=== PATIENT | female | born 1950 | race Caucasian/White ===

== ENCOUNTER 2017-09-03 09:39 | Emergency (ER) | payer BC ==
[2017-09-03 10:59] VITALS: BP 133/74
[2017-09-03] MEDS ORDERED: Phenazopyridine TAB* 100 MG PO ONE (11:15)
[2017-09-03] MEDS ORDERED: Cephalexin CAP* 500 MG PO ONE (11:15)
--- NOTE | 2017-09-03 11:30 | UC ---
Complaint Female HPI - HPI Summary HPI Summary: 67 yo female with one day hx of dysuria/urgency frequency chills mild LBP no fever no abd pain - History Of Current Complaint Chief Complaint: UCGU Stated Complaint: URINARY COMPLAINT Time Seen by Provider: 09/03/17 10:47 Hx Obtained From: Patient Onset/Duration: Gradual Onset Timing: Constant Severity Initially: Mild Severity Currently: Mild Pain Intensity: 2 - worse with urination Pain Scale Used: 0-10 Numeric Character: Burning Aggravating Factor(s): Nothing Associated Signs And Symptoms: Positive: Negative - Allergies/Home Medications Allergies/Adverse Reactions: Allergies Allergy/AdvReac Type Severity Reaction Status Date / Time ketoprofen Allergy Swelling Verified 09/03/17 10:43 Of Face,Lips,& Throat lisinopril Allergy Coughing Verified 09/03/17 10:43 losartan Allergy See Comment Verified 09/03/17 10:43 naproxen Allergy Edema Verified 09/03/17 10:43 Sulfa (Sulfonamide Allergy Rash Verified 09/03/17 10:45 Antibiotics) PMH/Surg Hx/FS Hx/Imm Hx Previously Healthy: Yes Cardiovascular History: Hypertension Respiratory History: Asthma - Surgical History Surgical History: Yes Surgery Procedure, Year, and Place: Tonsillectomy, 1954, [place]. Tubal Ligation, 1975, [facility] [place]. Right HERLINDA, 2013, [place] with metal; right shoulder 03/2017. APPENDECTOMY- 1975- [facility] [place]. BUNIONECTOMY- 2009- [facility] [place]- DR. CRYSTAL - Social History Alcohol Use: Weekly Alcohol Amount: 1 Substance Use Type: None Smoking Status (MU): Never Smoked Tobacco Have You Smoked in the Last Year: No - Immunization History Most Recent Influenza Vaccination: NEVER Most Recent Tetanus Shot: 3-4 YEARS AGO Most Recent Pneumonia Vaccination: 2014 Review of Systems Constitutional: Negative Skin: Negative Eyes: Negative ENT: Negative Respiratory: Negative Cardiovascular: Negative Gastrointestinal: Negative Genitourinary: Dysuria, Frequency, Urgency Motor: Negative Neurovascular: Negative Musculoskeletal: Negative Neurological: Negative Psychological: Negative Is Patient Immunocompromised?: No All Other Systems Reviewed And Are Negative: Yes Physical Exam Triage Information Reviewed: Yes Appearance: Well-Appearing, No Pain Distress, Well-Nourished Vital Signs: Initial Vital Signs Temp 98.4 F 09/03/17 10:50 Pulse 81 09/03/17 10:50 Resp 16 09/03/17 10:50 BP 133/74 09/03/17 10:50 Pulse Ox 100 09/03/17 10:50 Vital Signs Reviewed: Yes Eyes: Positive: Conjunctiva Clear ENT: Negative: Pharyngeal erythema, Nasal congestion, Nasal drainage, Trismus, Muffled voice, Hoarse voice Neck: Positive: Supple, Nontender Respiratory: Positive: Lungs clear, Normal breath sounds, No respiratory distress, No accessory muscle use Cardiovascular: Positive: RRR, No Murmur Abdomen Description: Positive: Nontender. Negative: CVA Tenderness (R), CVA Tenderness (L) Bowel Sounds: Positive: Present Musculoskeletal: Positive: ROM Intact, No Edema Psychological Exam: Normal Skin Exam: Normal Complaint Female Dx - Course Course Of Treatment: UA +++ leuks, ++ RBCs - Differential Dx/Diagnosis Provider Diagnoses: acute cystitis Discharge - Discharge Plan Condition: Stable Disposition: HOME Prescriptions: Cephalexin CAP* [Keflex CAP*] 500 mg PO BID #10 cap Phenazopyridine TAB* [Pyridium TAB*] 100 mg PO TID #6 tab Patient Education Materials: Dysuria (ED) Referrals: Viv Wilde MD [Primary Care Provider] - 3 Days (if not better)
== END 2017-09-03 11:30 | disposition home or self-care (01) ==
LOC: UCCORT 09:39
DX: N30.00 Acute cystitis without hematuria (principal); Z88.1 Allergy status to other antibiotic agents; Z88.8 Allergy status to other drugs, medicaments and biological substances; I10 Essential (primary) hypertension
CPT/HCPCS: 81003; 87077; 87086; 87186; 99212; A9270-GY; G0463

== ENCOUNTER 2017-09-17 09:06 | Emergency (ER) | payer BC ==
[2017-09-17 09:42] VITALS: BP 137/79
--- NOTE | 2017-09-17 10:32 | ED ---
GI/ HPI - HPI Summary HPI Summary: 67 yr old recently treated for UTI, and has left flank pain, dysuria, frequency. Denies fever and chills. Symptoms have come back over the weekend. No other complaints. - History of Current Complaint Chief Complaint: UCGU Time Seen by Provider: 09/17/17 10:10 Stated Complaint: URINARY Pain Intensity: 3 - Additional Pertinent History Primary Care Physician: MARILY - Allergy/Home Medications Allergies/Adverse Reactions: Allergies Allergy/AdvReac Type Severity Reaction Status Date / Time ketoprofen Allergy Swelling Verified 09/17/17 09:33 Of Face,Lips,& Throat lisinopril Allergy Coughing Verified 09/17/17 09:33 losartan Allergy See Comment Verified 09/17/17 09:33 naproxen Allergy Edema Verified 09/17/17 09:33 Sulfa (Sulfonamide Allergy Rash Verified 09/17/17 09:33 Antibiotics) PMH/Surg Hx/FS Hx/Imm Hx Previously Healthy: Yes Cardiovascular History: Reports: Hx Hypertension - ON MEDS FOR Respiratory History: Reports: Hx Asthma - PT IS ON MEDS FOR Musculoskeletal History: Reports: Hx Osteoporosis - Cancer History Hx Chemotherapy: No Hx Radiation Therapy: No - Surgical History Surgery Procedure, Year, and Place: Tonsillectomy, 1954, [place]. Tubal Ligation, 1975, [facility] [place]. Right HERLINDA, 2013, [place] [facility] with metal; right shoulder 03/2017. APPENDECTOMY- 1975- [facility] [place]. BUNIONECTOMY- 2009- [facility] [place]- DR. BONILLA Gonzales Anesthesia Reactions: No Infectious Disease History: No Infectious Disease History: Denies: Traveled Outside the [place] in Last 30 Days - Family History Known Family History: Positive: None - Social History Occupation: Retired Alcohol Use: Weekly Alcohol Amount: 1 Substance Use Type: Reports: None Smoking Status (MU): Never Smoked Tobacco Have You Smoked in the Last Year: No Review of Systems Constitutional: Negative Positive: dysuria, flank pain, urgency All Other Systems Reviewed And Are Negative: Yes Physical Exam Triage Information Reviewed: Yes Vital Signs On Initial Exam: Initial Vitals Temp Pulse Resp BP Pulse Ox 98.8 F 78 18 137/79 100 09/17/17 09:33 09/17/17 09:33 09/17/17 09:33 09/17/17 09:33 09/17/17 09:33 Vital Signs Reviewed: Yes Appearance: Positive: Well-Appearing, No Pain Distress Skin: Positive: Warm, Skin Color Reflects Adequate Perfusion Head/Face: Positive: Normal Head/Face Inspection Eyes: Positive: EOMI ENT: Positive: Normal ENT inspection Neck: Positive: Nontender Respiratory/Lung Sounds: Positive: Clear to Auscultation, Breath Sounds Present Cardiovascular: Positive: RRR. Negative: Murmur Abdomen Description: Positive: Nontender, CVA Tenderness (L) Musculoskeletal: Positive: Strength/ROM Intact Neurological: Positive: Sensory/Motor Intact, Alert, Oriented to Person Place, Time, CN Intact II-III Psychiatric: Positive: Normal Diagnostics - Vital Signs Vital Signs Temp Pulse Resp BP Pulse Ox 09/17/17 09:33 98.8 F 78 18 137/79 100 - Laboratory Lab Results: Lab Results 09/17/17 Range/Units 09:54 POC Urine Color Yellow POC Urine Clarity Cloudy POC Urine pH 6.5 (5-9) POC Ur Specif Dixon 1.015 (1.010-1.030) POC Urine Protein 2+ A (Negative) POC Ur Glucose (UA) Negative (Negative) POC Urine Ketones Trace A (Negative) POC Urine Blood 3+ A (Negative) POC Urine Nitrite Negative (Negative) POC Urine Bilirubin Negative (Negative) POC Urine Urobilinogen 0.2 (Negative) POC U Leukocyte Esteras 3+ A (Negative) Lab Statement: Any lab studies that have been ordered have been reviewed, and results considered in the medical decision making process. GIGU Course/Dx - Course Course Of Treatment: 67 yr old with flank pain, and urinary symptoms. Urine dip positive for infection. Rx with Augmentin 10 days. - Diagnoses Provider Diagnoses: Pyelonephritis Discharge - Discharge Plan Condition: Good Disposition: HOME Prescriptions: Amoxicillin/Clavulanate TAB* [Augmentin TAB 875*] 875 mg PO BID #20 tab Phenazopyridine TAB* [Pyridium 100 mg TAB*] 100 mg PO TID #6 tab Patient Education Materials: Kidney Infection (ED) Referrals: Viv Wilde MD [Primary Care Provider] - 2 Days
== END 2017-09-17 10:29 | disposition home or self-care (01) ==
LOC: UCCORT 09:06
DX: N12 Tubulo-interstitial nephritis, not specified as acute or chronic (principal); B96.20 Unspecified Escherichia coli [E. coli] as the cause of diseases classified elsewhere; Z88.8 Allergy status to other drugs, medicaments and biological substances; Z88.2 Allergy status to sulfonamides; I10 Essential (primary) hypertension; J45.909 Unspecified asthma, uncomplicated
CPT/HCPCS: 81003; 87077; 87086; 87186; 99212; G0463

== ENCOUNTER 2018-11-12 06:01 | Inpatient (IN) | payer MEDICARE, BC ==
--- NOTE | 2018-10-29 19:00 | HP ---
CC: Dr. Viv Wilde; Dr. Abdias Toussaint * ADMISSION HISTORY AND PHYSICAL: DATE OF ADMISSION: 11/12/18 DATE OF OFFICE VISIT: 10/28/18 ATTENDING SURGEON: Dr. Agus Medrano.* (DICTATED BY GEMINI BOBO) CHIEF COMPLAINT: Abdominal ventral hernia. HISTORY OF PRESENT ILLNESS: This is a 68-year-old female, who underwent laparoscopic-assisted right colectomy in 2016 for a benign polyp. Some time beginning in the 6- to 9-month period following surgery, she was bending over and felt some pain in her mid abdomen. Subsequently, with significant intentional weight loss (80 pounds), she noted the development of a mid abdominal bulge. This has increased in size since it was first noted and she often has discomfort particularly after exercise. She has not had any particular changes in GI function and specifically denies nausea, vomiting, or constipation. She does note some increased pain with sneezing or coughing. She has not had any symptoms to suggest incarceration or strangulation. She was seen in the office by Dr. Medrano on 09/27/18, at which time examination confirmed the presence of a mid abdominal ventral hernia measuring approximately 16 x 6 cm. It was nontender and reducible. She did undergo an attempted colonoscopy recently with Dr. Toussaint, but this was unable to be completed because of the tortuous nature of her left colon and the fact that the colon appeared to be within the hernia sac. She did have one tubular adenoma removed at that time. She underwent subsequent virtual CT colonoscopy on 10/10/18, which did not show any other lesions of significance. She was noted to have gallstones and diverticulosis without diverticulitis. She understands the indications for surgery, the risks, benefits, and alternatives. She would like to proceed as scheduled with open repair of ventral hernia with component separation and mesh. She also understands the expected potential hospital stay. PAST MEDICAL HISTORY: Hypertension, asthma, palpitations. PAST SURGICAL HISTORY: Previous surgeries include laparoscopic-assisted right colectomy in 2016. Previously, she has had tubal ligation with incidental appendectomy, left foot surgery complicated by left calf DVT for which she was treated and without any history of recurrence. In addition, she has undergone right total hip arthroplasty in 2013, right shoulder replacement in 2017, right knee replacement in 2018, tonsillectomy remotely. No other postsurgical or anesthesia complications noted. CURRENT MEDICATIONS: 1. Aspirin 81 mg once daily, which she will hold as of 7 days preoperatively. 2. Diltiazem extended release 120 mg once daily. 3. Hydrochlorothiazide 12.5 mg once daily. 4. Pulmicort MDI 90 mcg per activation 1 puff once daily. 5. ProAir HFA 2 puffs q.4 hours p.r.n. (the patient virtually never uses). 6. Multivitamin daily. 7. Calcium supplement daily. 8. Eye moisturizing drops daily. DRUG ALLERGIES: SULFA (rash), ALEVE (ankle swelling), KETOPROFEN (mouth numbness and diarrhea) (she tolerates other NSAIDs), LISINOPRIL (cough), FOSAMAX (joint pain). FAMILY HISTORY: Not obtained. SOCIAL HISTORY: The patient is . She has 1 son and grandson currently living with her. She is retired. She denies use of tobacco. She drinks approximately 1 alcoholic drink per week and denies any other recreational drug use. REVIEW OF SYSTEMS: General: No recent constitutional symptoms or acute illnesses. Weight has been stable of late after intentional weight loss as noted above. HEENT: No problems reported. Cardiovascular: Her palpitations are well controlled. She is treated for hypertension. No history of any other cardiovascular disease. Respiratory: No recent exacerbations of her asthma, which is well controlled. No chronic cough or shortness of breath. GI: No additional symptoms other than per the HPI. : No problems reported. 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 She no longer her Pap smears done and no problems reported. Endocrine: No diabetes or thyroid dysfunction. PHYSICAL EXAMINATION GENERAL: Well-nourished, well-developed female, in no acute distress. VITAL SIGNS: Height 5 feet 3 inches, weight 125 pounds. Other vital signs per nursing. HEENT: Pupils are equal, round, and reactive. EOMs intact. No conjunctival pallor. Oropharynx: Teeth in good repair. No intraoral lesions noted. NECK: No lymphadenopathy, thyromegaly, or masses. LUNGS: Clear to auscultation. No rales or wheezes. HEART: Regular rate and rhythm. No murmur noted. ABDOMEN: Soft, nontender to palpation. There is a visible and palpable mid abdominal bulge, which is nontender and reducible, consistent with her known ventral hernia. GENITALIA: Not done. RECTAL: Not done. BACK: No spinous process or CVA tenderness. EXTREMITIES: No edema. NEUROLOGICAL: Grossly intact. SKIN: Warm and dry. No suspicious rashes or lesions. IMPRESSION: Abdominal ventral hernia. PLAN: Open repair of abdominal ventral hernia with component separation and mesh. GEMINI BOBO [id number]/[facility] #: [id number] [facility] CENTERAdam
[~2018-11-12 06:01] MED LIST: Buffered Lidocaine 1% SYRIN* 1 ML/SYRINGE INTRADERM ONE; Lactated Ringers 1000 ML Bag* 1,000 ML IV SCH; Sodium Citrate/Citric Acid* 15 ML UDC PO ONE
[2018-11-12] MEDS ORDERED: Sodium Citrate/Citric Acid* 15 ML UDC ONE ×2 (06:15)
[2018-11-12] MEDS ORDERED: Heparin VIAL(*) 5000 UNITS/ML VIAL (FIVE THOUSAND) ONE (06:15)
[2018-11-12] MEDS ORDERED: ceFAZolin 2 GM PREMIX in ORs 2 GM/50 ML BAG IVPB ONE ×2 (06:15→11:38)
[2018-11-12] MEDS ORDERED: Lidocaine 1% INJ* 10 MG/ML 30 ML SDV ONE (06:47)
[2018-11-12] MEDS ORDERED: Bupivacaine 0.5% W/EPI SDV* 30 ML VIAL ONE (06:47)
[2018-11-12] MEDS ORDERED: Midazolam* 1 MG/ML 2 ML VIAL (2 MG) ONE (07:22)
[2018-11-12] MEDS ORDERED: Propofol* 10 MG/ML 20 ML BTL ONE (07:22)
[2018-11-12] MEDS ORDERED: Lidocaine 2% PF * 5 ML VIAL ONE (07:22)
[2018-11-12] MEDS ORDERED: Rocuronium* 10 MG/ML VIAL ONE (07:22)
[2018-11-12] MEDS ORDERED: fentaNYL* 50 MCG/ML 2 ML VIAL (100 MCG VIAL) ONE ×3 (07:22→13:00)
[2018-11-12] MEDS ORDERED: KETAMINE HCL* 50 MG/ML 10 ML VIAL ONE (07:39)
[2018-11-12] MEDS ORDERED: Dexamethasone IV* 4 MG/ML 1 ML (4 MG) ONE (08:21)
[2018-11-12] MEDS ORDERED: Acetaminophen IV 1GM/100ML * 1,000 MG/100 ML VIAL IVPB ONE (08:27)
[2018-11-12] MEDS ORDERED: Naloxone* 0.4 MG/ML 1 ML VIAL IV PRN (08:27)
[2018-11-12] MEDS ORDERED: fentaNYL* 50 MCG/ML 2 ML VIAL (100 MCG VIAL) IV PRN (08:27)
[2018-11-12] MEDS ORDERED: Bupivacaine 0.25% SDV PF* 10 ML VIAL INJ ONE (11:15)
[2018-11-12] MEDS ORDERED: oxyCODONE/Acetamin 5/325 MG* TAB PO PRN (11:59)
[2018-11-12] MEDS ORDERED: Acetaminophen TAB* 325 MG PO PRN (11:59)
[2018-11-12] MEDS ORDERED: Docusate CAP* 100 MG PO PRN (11:59)
[2018-11-12] MEDS ORDERED: PTO:Albuterol HFA INHALER* 8 gm MDI INH PRN (12:04)
[2018-11-12] MEDS ORDERED: Artificial Tears* 15 ML BTL BOTH EYES PRN (12:04)
[2018-11-12] MEDS ORDERED: Naloxone* 0.4 MG/ML 1 ML VIAL IV PUSH PRN (12:06)
--- NOTE | 2018-11-12 12:17 | BRIEFOPN ---
Brief Operative Note - Surgery Procedures: PREOP DX:VENTRAL HERNIA POSTOP DX:SAME AND GALLSTONES PROC:OPEN VENTRAL INCISIONAL HERNIA REPAIR WITH COMPONENT SEPARATION (TAR) AND MESH; CHOLECYSTECTOMY SURG: MECENAS ASSIST: RAMONA MAHER: MIRIAM; ROCKY EBL:200ML U/O: 500ML IVF:2L LR SPEC:HERNIA SAC AND GALLBLADDER DRAIN:NONE COMPL:NONE COND:STABLE; EXTUBATED; TO RR FINDINGS: 10 CM x 11 CM HERNIA IN UPPER MIDLINE; GALLSTONES
[2018-11-12] MEDS ORDERED: Acetaminophen IV 1GM/100ML * 100 ML ONE (13:00)
[2018-11-12] MEDS ORDERED: HYDROmorphone PCA* 20 MG/20 ML PCA.SYRING PCA SCH ×2 (13:00→15:30)
[2018-11-12] MEDS: Lactated Ringers 1000 ML Bag* 1,000 ML IV SCH ×2 (14:06→22:00)
--- NOTE | 2018-11-12 15:05 | OP ---
CC: Viv Wilde MD. * DATE OF OPERATION: 11/12/18 - ROOM #352 DATE OF : 46 SURGEON: Dr. Medrano. CHIEF PHYSICAL THERAPIST: Dr. Manzanares. ANESTHESIOLOGIST: Dr. Marquez ANESTHESIA: General endotracheal. PRE-OP DIAGNOSIS: Ventral incisional hernia. POST-OP DIAGNOSES: Ventral incisional hernia and cholelithiasis. OPERATIVE PROCEDURE: 1. Open ventral incisional hernia repair with components of separation ( transversus abdominis release and mesh placement). 2. Cholecystectomy. ESTIMATED BLOOD LOSS: 200 mL. IV FLUIDS: 2 L of crystalloids. URINE OUTPUT: 500 mL. DRAINS: None. COMPLICATIONS: None. COUNTS: The instrument, needle, and sponge counts were correct. SPECIMEN: 1. Hernia sac. 2. Gallbladder. DESCRIPTION OF PROCEDURE: The patient was brought to the operating room and placed on the table supine. Sequential compression devices were placed on both lower extremities. General anesthesia was administered. Burns catheter was placed. She was positioned and padded appropriately. She was administered antibiotics through the IV. She was prepped and draped in usual sterile fashion. Time-out was performed. Local anesthetic was infiltrated into the skin and soft tissue prior to making each incision. Entry to the abdomen was through the upper midline scar and after incising the skin the incision was deepened through the subcutaneous tissue using cautery. The hernia sac was entered. There were no contents within the hernia. The incision was lengthened superiorly and inferiorly around the umbilicus as there was a small umbilical hernia as well. The hernia sac was dissected free from the subcutaneous tissue on each side and excised and submitted to pathology. The fascial edges were identified. The dissection proceeded on the left side incising the posterior rectus sheath a centimeter from the medial edge of the rectus muscle. The dissection proceeded down laterally to just medial to the perforating vessels. The transversus abdominis muscle was identified after incising the anterior leaf of fascia and then the release was performed dividing the muscle fibers in the upper abdomen extending in this plane down to the linea semilunaris and entering in the preperitoneal space inferiorly with preservation of the inferior epigastric vessels and the dissection then proceeded out laterally using blunt dissection all the way to the psoas. The dissection then was undertaken on the right side after dividing the falciform ligament and the ligamentum teres. The ligamentum teres was divided between clamps and ligated with 2 absorbable ties. Similar dissection was performed on the right side in order to enter the plane and release the transversus abdominis. Any rents in the peritoneum were repaired with 3-0 Vicryl. In the upper midline, the posterior sheath was released for a length of about 5 cm to allow space to place the mesh. Inferiorly a good 5 to 8 cm of space was achieved. Inspection of the peritoneal cavity was performed. The prior anastomosis was identified, this appeared to be intact the small bowel was run from the ligament of Treitz distally to the ileocolic anastomosis and there appeared to be no abnormalities. The large intestine was run from the ileocolic anastomosis distally, no abnormalities were noted. No abnormalities were noted of the liver, the anterior stomach or spleen. There was noted to be gallstones within the gallbladder. The decision was made to perform cholecystectomy. After placing lap pads above the liver the gallbladder was grasped at the fundus with a Chrai clamp and then peritoneal adhesions to the gallbladder was incised entering the plane between the gallbladder and the liver bed at the fundus. The dissection proceeded in this fashion toward the cystic duct. The cystic artery was identified; it was clipped and divided. The cystic duct was identified, was dissected out, and was doubly clipped and divided. The gallbladder was handed off as specimen. Hemostasis was assured and clips are noted to be intact. After lavage of the abdomen until clear with warm saline the posterior sheath was closed in the midline with running 0-PDS. Next a polypropylene mesh was cut from the 10 x 14 inch piece of mesh in order to cover the entire dissected area and the defect was measured at 10 x 11 cm with the transverse dimension being larger. The mesh was cut to about 18 cm in cephalocaudal dimension and it was 25 cm and the lateral dimension. It was cut to shape the space created and the mesh was laid flat within the space. No additional suturing of this was performed as it lay quite nicely. Hemostasis was assured in the space and then the anterior sheath was closed with a 0-PDS running. Prior to the completion of the closure 20 mL 0.25% bupivacaine placed in each side of the space and then the closure was completed. The subcutaneous tissues were irrigated and closed with a running 3-0 Vicryl. The skin was closed with a running 4-0 Monocryl in subcuticular fashion. DermaFlex glue was applied to the site and then dressings. The patient tolerated the procedure well, was extubated and then transferred to the recovery room in stable condition. [id number]/[facility] #: [id number] DONNA
[2018-11-13 05:41] LABS: ABS Lymphocytes 0.9 10^3/ul (1.0-4.8); ABS Monocytes 0.6 10^3/ul (0-0.8); ABS Neutrophils 5.5 10^3/ul (1.5-7.7); Hematocrit 34 % (35-47); Hemoglobin 11.7 g/dL (12.0-16.0); Lymphocyte % 13.1 %; Mean Corpuscular HGB Conc 35 g/dL (31-36); Mean Corpuscular Hemoglobin 32 pg (27-31); Mean Corpuscular Volume 93 fL (80-97); Mean Platelet Volume 10.7 fL (7.4-10.4); Platelet Count 136 10^3/uL (150-450); Red Blood Count 3.65 10^6 /uL (3.70-4.87); Red Cell Distribution Width 13 % (10.5-15); White Blood Count 7.1 10^3/uL (3.5-10.8)
[2018-11-13] MEDS: Lactated Ringers 1000 ML Bag* 1,000 ML IV SCH ×2 (05:58→14:40)
[2018-11-13 06:01] LABS: BUN/Creatinine Ratio 17.7 (8-20); Calcium 8.8 mg/dL (8.6-10.3); EGFR African American 115.1 (>60); EGFR Non-African American 95.2 (>60); Potassium 4.2 mmol/L (3.5-5.0)
[2018-11-13] MEDS: BUDESONIDE INH SCH (08:00)
[2018-11-13] MEDS ORDERED: Diltiazem CD CAP* 120 MG PO SCH (09:00)
[2018-11-13] MEDS: Calcium/Vitamin D TAB 250/125* TAB PO SCH (09:30)
[2018-11-13] MEDS: Ondansetron INJ* 2 MG/ML VIAL IV PRN ×2 (09:30→14:41)
--- NOTE | 2018-11-13 16:44 | PN ---
Progress Note - Progress Note Date of Service: 11/13/18 Note: Subjective: Pt is POD #1, states she feels good today but does feel more nauseous. She currently says her pain is minimal and has only had to use her GENERAL OFFICE ASSISTANT pump two times today. She also states her mouth is dry and she has only urinated once since having her irby removed this afternoon. She has not produced much flatus today. She denies any fever, chest pain, shortness of breath, or vomiting. Objective: Exam: Pt is sitting upright in chair in no acute distress. She has normal S1/ S2 with no murmurs, rubs, gallops. Lung sounds are clear bilat with no wheezes , rales, rhonchi. There is a new dressing on her surgical site with no drainage noted through the dressing. Bowel sounds are hypoactive. Selected Entries 11/12/18 11/13/18 11/13/18 23:18 11:38 15:52 Temperature 98.5 F 98.5 F 99.5 F Pulse Rate 84 72 79 Respiratory 16 17 16 Rate Blood Pressure 112/61 119/62 114/58 (mmHg) O2 Sat by Pulse 98 99 96 Oximetry Patient on Room Yes Yes Yes Air Laboratory Tests 11/13/18 11/13/18 04:47 04:47 RBC 3.65 L Hgb 11.7 L Hct 34 L Sodium 133 L Chloride 98 L Glucose 121 H Intake & Output 11/13/18 11/13/18 11/13/18 06:59 14:59 22:59 Intake Total 1343 170 980 Output Total 450 125 100 Balance 893 45 880 Intake: IV Fluids 983 980 LR 983 980 Oral 360 170 Output: Urine 0 100 Irby 450 125 Other: # Bowel Movements 0 Assessment: s/p ventral hernia repair increased nausea low urine output Plan: Continue using GENERAL OFFICE ASSISTANT pump for pain relief as prescribed Scopolomine patch for nausea relief Continue to drink PO fluids as tolerated LR bolus IV to improve hydration Movement as tolerated
[2018-11-13] MEDS ORDERED: NS 0.9% 500 ML* 500 ML IV ONE (17:10)
[2018-11-13] MEDS: Diltiazem CD CAP* 120 MG PO SCH (17:24)
[2018-11-13] MEDS ORDERED: Scopolamine 1.5 mg* PATCH TRANSDERM SCH (18:00)
[2018-11-14] MEDS: Lactated Ringers 1000 ML Bag* 1,000 ML IV SCH ×2 (00:12→07:50)
[2018-11-14 08:39] VITALS: BP 113/62
[2018-11-14] MEDS: BUDESONIDE INH SCH (08:39)
[2018-11-14] MEDS: Calcium/Vitamin D TAB 250/125* TAB PO SCH (08:40)
[2018-11-14] MEDS: Diltiazem CD CAP* 120 MG PO SCH (08:40)
--- NOTE | 2018-11-14 09:01 | PN ---
Progress Note - Progress Note Date of Service: 11/14/18 Note: S: POD #2. Very little pain. Nausea seems to be gone. No flatus or BM yet. Ambulating well. O: Vital Signs - 8 hr 11/14/18 11/14/18 11/14/18 01:00 03:00 03:37 Temperature 98.9 F Pulse Rate 89 Respiratory 16 15 17 Rate Blood Pressure 118/64 (mmHg) O2 Sat by Pulse 92 95 97 Oximetry 11/14/18 11/14/18 11/14/18 04:28 05:00 06:23 Temperature Pulse Rate Respiratory 16 15 Rate Blood Pressure (mmHg) O2 Sat by Pulse 96 96 98 Oximetry 11/14/18 07:27 Temperature 99.0 F Pulse Rate 83 Respiratory 16 Rate Blood Pressure 113/62 (mmHg) O2 Sat by Pulse 97 Oximetry Intake and Output Last 24 Hours 11/12/18 11/13/18 11/14/18 11/15/18 06:59 06:59 06:59 06:59 Intake Total 4848 3128 1078 Output Total 1875 1260 500 Balance 2973 1868 578 Weight 127 lb 12.8 oz Intake: IV Fluids 4288 2458 958 LR 4288 1958 958 NS (0.9%) 500 Oral 560 670 120 Output: Urine 1135 500 Burns 1875 125 Other: # Bowel Movements 0 0 Estimated Blood Loss 200 Comment Gen: sitting up in chair; appears comfortable Heart: reg Lungs: clear Abd: Binder in place; +BS; dsg dry A: s/p open ventral hernia repair w/ mesh and component separation, doing well P: see how she ruben's diet; consideration of d/c home later today vs 11/15; will d /w Dr. Medrano; d/c LOAN REPRESENTATIVE; po analgesics
--- NOTE | 2018-11-14 14:41 | DS ---
DISCHARGE SUMMARY: DATE OF ADMISSION: 11/12/18 DATE OF DISCHARGE: 11/14/18 DISCHARGE DIAGNOSES: 1. Ventral incisional hernia. 2. Gallstones. ADDITIONAL DIAGNOSES: 1. Hypertension. 2. Asthma. 3. Palpitations. PROCEDURE: Open ventral incisional hernia repair with components of separation and mesh placement and cholecystectomy. This was done on 11/12/18. HOSPITAL COURSE: Parisa Beasley is a 68-year-old female who has a history of above mentioned illnesses. She was admitted to [facility] for surgical repair of her hernia and she underwent an incidental cholecystectomy. Please refer to the operative report for full details. Postoperatively, the patient did well, was transferred from the recovery room to the short-stay surgical unit. Her diet was advanced the next day to full liquids from clear liquids and she was transitioned from IV pain medication to oral medication. Her Burns catheter was removed. Her activity was increased. Over the next day , she did not require any pain medication and she was able to be advanced further in her diet. She had no fevers and no nausea. Though, she had not passed any flatus, she had a bowel movement. Based on her clinical course, it was felt to be reasonable to discharge her home on postoperative day 2. She had resumed most of her preoperative medications and was instructed to resume all of her preoperative medications upon discharge. She was provided with instructions regarding postoperative wound care and asked to follow up in the office in 1 to 2 weeks after surgery. She had no laboratory tests pending and her pathology showed hernia sac and chronic cholecystitis with the cholelithiasis. The patient's condition was improved at the time of discharge and she was discharged home. [id number]/[facility] #: [id number] [facility] CENTERAdam
[2018-11-16] MEDS ORDERED: Scopolamine PATCH Remove* 1 NOTE MISC PATCH OFF SCH (18:00)
== END 2018-11-14 12:20 | disposition home or self-care (01) | DRG 355 ==
LOC: OR 06:01 → SSU 11:59
PROVIDERS: ADMIT Surgery; ATTEND Surgery
PROC: 0FT40ZZ Resection of Gallbladder, Open Approach (ICD-10-PCS; 2018-11-12)
PROC: 0WUF0JZ Supplement Abdominal Wall with Synthetic Substitute, Open Approach (ICD-10-PCS; principal; 2018-11-12 07:30)
DX: K43.2 Incisional hernia without obstruction or gangrene (principal); I10 Essential (primary) hypertension; J45.909 Unspecified asthma, uncomplicated; Z96.611 Presence of right artificial shoulder joint; Z96.651 Presence of right artificial knee joint; Z96.641 Presence of right artificial hip joint; K57.90 Diverticulosis of intestine, part unspecified, without perforation or abscess without bleeding; K80.20 Calculus of gallbladder without cholecystitis without obstruction; R11.0 Nausea; R39.12 Poor urinary stream; Z98.51 Tubal ligation status; Z86.718 Personal history of other venous thrombosis and embolism; Z88.2 Allergy status to sulfonamides; Z88.8 Allergy status to other drugs, medicaments and biological substances; Z72.89 Other problems related to lifestyle; Z90.89 Acquired absence of other organs; Z90.49 Acquired absence of other specified parts of digestive tract; Z85.038 Personal history of other malignant neoplasm of large intestine
CPT/HCPCS: 36415; 80048; 85025; 88302; 88304; 94640; A9270-GY; C1781; J0690; J1100; J1170; J1644; J2250; J2405; J2704; J3010; J3490